=== PATIENT | female | born 1950 | race Caucasian/White ===

== ENCOUNTER 2018-10-22 06:46 | Day surgery (SDC) | payer MEDICARE, OTHER ==
[2018-10-22] MEDS ORDERED: Lactated Ringers 1,000 ML IV SCH (07:00)
[2018-10-22] MEDS ORDERED: fentaNYL 100 MCG/2 ML SDV ONE (07:52)
[2018-10-22] MEDS ORDERED: Propofol 200 MG/20 ML SDV ONE (07:52)
--- NOTE | 2018-10-22 13:09 | OR ---
PREOPERATIVE DIAGNOSIS: Positive FIT test. POSTOPERATIVE DIAGNOSIS: Mild sigmoid diverticulosis, otherwise normal exam. PROCEDURE PROPOSED: Total flexible colonoscopy. PROCEDURE DONE: Total flexible colonoscopy. INDICATION: This is a 68-year-old female who comes in for recommended colonoscopy due to a positive FIT test. She denies any symptomatology and she has a negative family history for colon polyps or cancer. TECHNIQUE: The patient brought to the endoscopy suite, placed in left lateral decubitus position. She was sedated per BREEDING TECHNICIAN with propofol. The flexible video colonoscope was then passed transanally and under visualization advanced to the cecum. Examination revealed a normal ascending, transverse, and descending colon. The sigmoid colon revealed some mild diverticulosis and the rectum was normal. The scope was then withdrawn. The patient tolerated the procedure well. FINAL IMPRESSION: Essentially normal colonoscopic exam with sigmoid diverticulosis. PLAN: The patient was reassured. I felt she could wait 10 years before she needs a repeat colonoscopy. SCM: 10/22/2018 08:53:38 MODL: 10/22/2018 12:59:53 /[id number]
== END 2018-10-22 10:05 | disposition home or self-care (01) ==
LOC: VM.SDS 06:46
PROVIDERS: ATTEND Surgery
DX: R19.5 Other fecal abnormalities (principal); K57.30 Diverticulosis of large intestine without perforation or abscess without bleeding; E78.00 Pure hypercholesterolemia, unspecified; Z79.899 Other long term (current) drug therapy; Z88.8 Allergy status to other drugs, medicaments and biological substances
CPT/HCPCS: 45378; J2704; J3010; J7120

== ENCOUNTER 2022-08-30 07:20 | Emergency (ER) | payer MEDICARE, OTHER | END 2022-08-30 08:13 | disposition home or self-care (01) | LOC: VM.ED 07:20 | DX: K59.00 Constipation, unspecified (principal); Z88.6 Allergy status to analgesic agent; Z79.899 Other long term (current) drug therapy; Z90.49 Acquired absence of other specified parts of digestive tract | CPT/HCPCS: 99283 ==

== ENCOUNTER 2022-09-21 16:14 | Emergency (ER) | payer MEDICARE, OTHER ==
[2022-09-21] MEDS ORDERED: Magnesium Hydroxide 400 MG/5 ML Susp 30 ML Cup PO ONE (17:47)
== END 2022-09-21 18:00 | disposition home or self-care (01) ==
LOC: VM.ED 16:14
DX: K59.00 Constipation, unspecified (principal); E78.00 Pure hypercholesterolemia, unspecified; Z79.899 Other long term (current) drug therapy; Z79.82 Long term (current) use of aspirin
CPT/HCPCS: 74019; 99283; 99284; A9270-GY

== ENCOUNTER 2022-10-13 17:29 | Emergency (ER) | payer MEDICARE, OTHER ==
[2022-10-13] MEDS ORDERED: Sodium Chloride 0.9% 1,000 ML IV ONE (17:51)
[2022-10-13 18:15] LABS: CHLORIDE,CL 97 mmol/L (98-107); SODIUM,NA 135 mmol/L (136-145)
[2022-10-13 18:16] LABS: ANION GAP 18.1 mmol/L (5-15); ESTIMATED GFR 95 mL/min (>=60)
[2022-10-13] MEDS ORDERED: Piperacillin/Tazobactam 4.5 GM in Sodium Chloride 0.9% 100 ML IV SCH (18:45)
[2022-10-13 19:22] LABS: CORONAVIRUS COVID-19 NAA NEGATIVE (NEGATIVE); RESPIRATORY SYNCYTIAL VIR NAA NEGATIVE (NEGATIVE)
[2022-10-13] MEDS ORDERED: Sodium Chloride 0.9% 1,000 ML IV SCH (20:30)
== END 2022-10-13 20:40 | disposition short-term general hospital (02) ==
LOC: VM.ED 17:29
DX: A41.9 Sepsis, unspecified organism (principal); R65.20 Severe sepsis without septic shock; D70.9 Neutropenia, unspecified; R50.81 Fever presenting with conditions classified elsewhere; E78.00 Pure hypercholesterolemia, unspecified; Z20.822 Contact with and (suspected) exposure to COVID-19; Z79.899 Other long term (current) drug therapy; Z88.8 Allergy status to other drugs, medicaments and biological substances
CPT/HCPCS: 0241U; 36415; 71046; 80053; 81001; 83605; 85025; 85610; 87040; 87086; 96361; 96365; 99285; J2543; J7030